=== PATIENT | male | born 2000 | race Caucasian/White ===

== ENCOUNTER 2023-04-09 13:46 | Emergency (ER) | payer OTHER ==
[~2023-04-09] VITALS: Ht 177.8 cm; Wt 70.3 kg
[2023-04-09] MEDS ORDERED: DICLOFENAC SODI75 MG PO (15:18)
== END 2023-04-09 16:50 | disposition home or self-care (01) ==
LOC: ER 13:46
DX: M25.511 Pain in right shoulder (principal); W18.39XA Other fall on same level, initial encounter; Y93.18 Activity, surfing, windsurfing and boogie boarding; Y92.832 Beach as the place of occurrence of the external cause